=== PATIENT | male | born 1950 | race Caucasian/White ===

== ENCOUNTER 2020-06-12 21:04 | Emergency (ER) | payer MEDICARE ==
[~2020-06-12] VITALS: Ht 175.3 cm; Wt 90.0 kg
[2020-06-12] MEDS: KETOROLAC 60 MG/2 ML VIAL. IM ONE (22:03)
[2020-06-12] MEDS: diphenhydrAMINE HCL 25 MG CAPSULE PO ONE (22:05)
[2020-06-12] MEDS: CLINDAMYCIN HCL 150 MG CAPSULE PO ONE (22:06)
[2020-06-12] MEDS: predniSONE 20 MG TABLET PO ONE (22:06)
[2020-06-12] MEDS ORDERED: IBUP600T16 PO (22:13)
[2020-06-12] MEDS ORDERED: HYDR-3165 PO (22:13)
[2020-06-12] MEDS ORDERED: CLIN150C14 PO (22:13)
--- NOTE | 2020-06-12 22:14 | PHYS DOC ---
Past History Past Medical History: Arthritis, Cancer, Diabetes, Hypertension Past Surgical History: Knee Replacement, Other Additional Past Surgical Histo: radical prostatectomy; rt rotator cuff Alcohol Use: Sober Additional Alcohol Information: quit years ago General Adult EDM: Chief Complaint: DENTAL PROBLEM HPI: HPI: Patient is a presented to the ER today for dental pain and infection, left upper face swelling for two days. Patient denied any fever. He tried to call for an appointment with a dentist but not until next week. NO headache, no neck pain. Patient can open and close his mouth without any problem. Review of Systems: Review of Systems: Constitutional: Denies fever or chills Eyes: Denies change in visual acuity HENT: Denies nasal congestion or sore throat. Positive for dental pain. Respiratory: Denies cough or shortness of breath Cardiovascular: Denies chest pain or edema GI: Denies abdominal pain, nausea, vomiting, bloody stools or diarrhea : Denies dysuria Musculoskeletal: Denies back pain or joint pain Integument: Denies rash Neurologic: Denies headache, focal weakness or sensory changes Endocrine: Denies polyuria or polydipsia Lymphatic: Denies swollen glands Psychiatric: Denies depression or anxiety Heart Score: Risk Factors: Risk Factors: DM, Current or recent (<one month) smoker, HTN, HLP, family history of CAD, obesity. Risk Scores: Score 0 - 3: 2.5% MACE over next 6 weeks - Discharge Home Score 4 - 6: 20.3% MACE over next 6 weeks - Admit for Clinical Observation Score 7 - 10: 72.7% MACE over next 6 weeks - Early Invasive Strategies Current Medications: Current Meds: Current Medications Medications (Trade) Dose Ordered Sig/Sagar Start Time Stop Time Status Last Admin Dose Admin Clindamycin HCl (Cleocin) 300 mg 1X ONCE 06/12/20 22:00 06/12/20 22:01 DC 06/12/20 22:06 300 MG Diphenhydramine HCl (Benadryl) 50 mg 1X ONCE 06/12/20 22:00 06/12/20 22:01 DC 06/12/20 22:05 50 MG Ketorolac Tromethamine (Toradol Im) 60 mg 1X ONCE 06/12/20 22:00 06/12/20 22:01 DC 06/12/20 22:03 60 MG Prednisone (Prednisone) 60 mg 1X ONCE 06/12/20 22:00 06/12/20 22:01 DC 06/12/20 22:06 60 MG Allergies: Allergies: Allergies Coded Allergies Type Severity Reaction Last Updated Verified Penicillins Allergy Intermediate Hives 06/12/20 Yes codeine Adverse Reaction Intermediate Nausea and Vomiting 06/12/20 Yes Physical Exam: PE: Constitutional: Well developed, well nourished, no acute distress, non-toxic appearance. [] HENT: Normocephalic, atraumatic, bilateral external ears normal, oropharynx moist, no oral exudates, nose normal. Left upper gumline swelling and erythema, widespread dental decay. No palpable abscess. Eyes: PERRLA, EOMI, conjunctiva normal, no discharge. [] Neck: Normal range of motion, no tenderness, supple, no stridor. [] Cardiovascular:Heart rate regular rhythm, no murmur [] Lungs & Thorax: Bilateral breath sounds clear to auscultation [] Abdomen: Bowel sounds normal, soft, no tenderness, no masses, no pulsatile masses. [] Skin: Warm, dry, no erythema, no rash. [] Back: No tenderness, no CVA tenderness. [] Extremities: No tenderness, no cyanosis, no clubbing, ROM intact, no edema. [] Neurologic: Alert and oriented X 3, normal motor function, normal sensory function, no focal deficits noted. [] Psychologic: Affect normal, judgement normal, mood normal. [] Current Patient Data: Vital Signs: Vital Signs Date Time Temp Pulse Resp B/P (MAP) Pulse Ox O2 Delivery O2 Flow Rate FiO2 06/12/20 21:20 97.3 70 18 97 06/12/20 21:15 175/93 (120) Room Air EKG: EKG: [] Radiology/Procedures: Radiology/Procedures: [] Course & Med Decision Making: Course & Med Decision Making Pertinent Labs and Imaging studies reviewed. (See chart for details) [] Dragon Disclaimer: [place] Disclaimer: This electronic medical record was generated, in whole or in part, using a voice recognition dictation system. Departure Departure: Impression: Primary Impression: Infected dental caries Disposition: HOME/RESIDENCE PRIOR TO ADM Condition: STABLE Referrals: YAHIR KULKARNI (PCP) Patient Instructions: Dental Abscess, Dental Caries Scripts Ibuprofen (IBUPROFEN) 600 Mg Tablet 600 MG PO TID PRN for PAIN, #30 TAB Prov: INDIO CHAMPION DO 06/12/20 Hydrocodone Bit/Acetaminophen (NORCO 5-325 TABLET) 1 Each Tablet 1 TAB PO PRN Q6HRS PRN for PAIN, #15 TAB 0 Refills Prov: INDIO CHAMPION DO 06/12/20 Clindamycin Hcl (CLINDAMYCIN HCL) 150 Mg Capsule 2 CAP PO TID for dental infection for 10 Days, #60 CAP Prov: INDIO CHAMPION DO 06/12/20 Justification of Admission: Justification of Admission: Justification of Admission Dx: N/A INDIO CHAMPION DO Jun 12, 2020 22:13
[2020-06-12 22:15] VITALS: BP 156/93
== END 2020-06-12 22:20 | disposition home or self-care (01) ==
LOC: ER 21:04
DX: K02.9 Dental caries, unspecified (principal); K04.7 Periapical abscess without sinus; M19.90 Unspecified osteoarthritis, unspecified site; E11.9 Type 2 diabetes mellitus without complications; I10 Essential (primary) hypertension; Z88.0 Allergy status to penicillin; Z88.5 Allergy status to narcotic agent
CPT/HCPCS: 96372; 99284; J1885; J7512; Q0163